=== PATIENT | female | born 1990 | race American Indian/Alaskan Native ===

== ENCOUNTER 2017-01-24 18:46 | Emergency (ER) | payer OTHER ==
--- NOTE | 2017-01-24 22:13 | Emergency Department Report ---
ED Psych HPI - General Chief Complaint: Psych Stated Complaint: PSYCHE Time Seen by Provider: 01/24/17 21:30 Source: patient, family Mode of arrival: Ambulatory Limitations: Other - History of Present Illness Initial Comments: Is a 26-year-old female that presents emergency room with bizarre behavior and psychotic features. Patient's family states that she has not eaten for days and was arrested for trespassing into a judaism and this type of behavior is very unusual for her. Per family she is in her second year [employer] school and is almost ready to graduate. Family states she's been under a lot of stress due to a in the family. Unable to get accurate history from patient due to the flights of ideas. He denies suicidal ideations and homicidal ideations. MD Complaint: other -: Sudden Associated Psychiatric Symptoms: racing thoughts Quality: getting worse Improves With: none Worsens With: none Context: not taking psychiatric Treatments Prior to Arrival: none - Related Data Home Medications Medication Instructions Recorded Confirmed Last Taken No Known Home Medications [No 01/24/17 01/24/17 Unknown Reported Home Medications] Allergies Allergy/AdvReac Type Severity Reaction Status Date / Time amoxicillin [From Augmentin] Allergy Rash Verified 01/24/17 18:53 clavulanic acid Allergy Rash Verified 01/24/17 18:53 [From Augmentin] ED Review of Systems ROS: Stated complaint: PSYCHE Other details as noted in HPI Comment: All other systems reviewed and negative Constitutional: denies: chills, fever Eyes: denies: eye pain, eye discharge, vision change ENT: denies: ear pain, throat pain Respiratory: denies: cough, shortness of breath, wheezing Cardiovascular: denies: chest pain, palpitations Endocrine: no symptoms reported Gastrointestinal: denies: abdominal pain, nausea, diarrhea Genitourinary: denies: urgency, dysuria, discharge Musculoskeletal: denies: back pain, joint swelling, arthralgia Skin: denies: rash, lesions Neurological: denies: headache, weakness, paresthesias Psychiatric: denies: anxiety, depression Hematological/Lymphatic: denies: easy bleeding, easy bruising ED Past Medical Hx - Past Medical History Previous Medical History?: No - Family History Family history: no significant - Social History Smoking Status: Never Smoker Substance Use Type: None - Medications Home Medications: Home Medications Medication Instructions Recorded Confirmed Last Taken Type No Known Home Medications [No 01/24/17 01/24/17 Unknown History Reported Home Medications] ED Physical Exam - General Limitations: No Limitations General appearance: alert, in no apparent distress - Head Head exam: Present: atraumatic, normocephalic - Eye Eye exam: Present: normal appearance Pupils: Present: normal accommodation - ENT ENT exam: Present: mucous membranes moist - Neck Neck exam: Present: normal inspection - Respiratory Respiratory exam: Present: normal lung sounds bilaterally. Absent: respiratory distress - Cardiovascular Cardiovascular Exam: Present: regular rate, normal rhythm. Absent: systolic murmur, diastolic murmur, rubs, gallop - GI/Abdominal GI/Abdominal exam: Present: soft, normal bowel sounds - Extremities Exam Extremities exam: Present: normal inspection - Back Exam Back exam: Present: normal inspection - Neurological Exam Neurological exam: Present: alert, oriented X3 - Psychiatric Psychiatric exam: Present: agitated, anxious, manic (pt having racing thoughts. Patient having tangential ideas. Patient agitated during exam. pt. Delusional. pt hyper talkative) - Skin Skin exam: Present: warm, dry, intact, normal color. Absent: rash ED Course Vital Signs 01/24/17 18:53 Temperature 98.1 F Pulse Rate 101 H Respiratory 18 Rate Blood Pressure 117/81 O2 Sat by Pulse 100 Oximetry ED Medical Decision Making - Lab Data Result diagrams: 01/24/17 22:51 - Medical Decision Making Due to patient's mental status will 1013 patient. Patient appears unable to care for herself due to her psychosis. All labs reviewed. She is medically clear for psychiatric evaluation and transferred to psychiatric hospital. - Differential Diagnosis dep, bipolar,schizo, psychosis Critical care attestation.: If time is entered above; I have spent that time in minutes in the direct care of this critically ill patient, excluding procedure time. ED Disposition Clinical Impression: Psychosis, Delusions, Agitation Disposition: [id number]/TX-65 PSY HOSP/PSY UNIT Is pt being admited?: No Does the pt Need Aspirin: No Condition: Stable Time of Disposition: 02:07
[2017-01-24 23:14] LABS: Urine Drugs of Abuse Note Disclamer
[2017-01-24 23:27] LABS: Basophils % (Auto) 0.3 % (0.0-1.8); Eosinophils % (Auto) 0.5 % (0.0-4.3); Hematocrit 41.4 % (30.3-42.9); Hemoglobin 13.4 gm/dl (10.1-14.3); Mean Corpuscular HGB Conc 32 % (30-34); Mean Corpuscular Hemoglobin 28 pg (28-32); Mean Corpuscular Volume 87 fl (79-97); Platelet Count 335 K/mm3 (140-440); Red Blood Count 4.78 M/mm3 (3.65-5.03); Red Cell Distribution Width 13.8 % (13.2-15.2)
[2017-01-24 23:29] LABS: Bilirubin,Urine NEG (Negative); Blood,Urine SM (Negative); Ketones,Urine 80 mg/dL (Negative); Leukocyte Esterase,Urine NEG (Negative); Mucus,Urine 2+ /HPF; Nitrite,Urine NEG (Negative)
[2017-01-25 06:49] LABS: Anion Gap 24 mmol/L; BUN/Creatinine Ratio 13; Blood Urea Nitrogen 9 mg/dL (7-17); Calcium 9.7 mg/dL (8.4-10.2); Carbon Dioxide 21 mmol/L (22-30); Chloride 99.8 mmol/L (98-107); Glucose 97 mg/dL (65-100); Potassium 3.7 mmol/L (3.6-5.0); Sodium 141 mmol/L (137-145)
[2017-01-25 09:43] VITALS: BP 159/89
--- NOTE | 2017-01-25 11:48 | Consultation ---
History of Present Illness - Reason for Consult Consult date: 01/25/17 Reason for consult: Mental Health Evaluation Requesting physician: JAIDA CAMPA III - Chief Complaint Chief complaint: "I want to go home with my parents" - History of Present Psychiatric Illness 26-year-old female that presents emergency room with bizarre behavior and psychotic features. Today patient is calm and cooperative, but hyper verbal during the assessment. 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 The patient could not elaborate more about this incident. Per the ER note, the patient was arrested for trespassing. She stated that she had been up for days without sleep prior to the episode at her [employer] because she was "In the [employer]." She stated that someone in the hospital performed some type of "sleep study" on her overnight. Per the staff and notes, a sleep study was not performed on this patient (delusional). Patient had to be redirected several times during the interview to keep her on topic. She denies SI/HI's and AVH's. She denies a poor appetite. She denies recreational drug use and alcohol consumption (etoh). Medications and Allergies Allergies Allergy/AdvReac Type Severity Reaction Status Date / Time amoxicillin [From Augmentin] Allergy Rash Verified 01/24/17 18:53 clavulanic acid Allergy Rash Verified 01/24/17 18:53 [From Augmentin] Home Medications Medication Instructions Recorded Confirmed Last Taken Type No Known Home Medications [No 01/24/17 01/24/17 Unknown History Reported Home Medications] Mental Status Exam - Vital signs Last Vital Signs Temp 98.7 F 01/25/17 08:30 Pulse 109 H 01/25/17 08:30 Resp 18 01/25/17 08:30 BP 159/89 01/25/17 08:30 Pulse Ox 98 01/25/17 08:30 - Exam Narrative exam: MSE: Appearance: calm, cooperative Behavior: regular eye contact Speech: regular rate and tone, hyper verbal Mood: "okay" Affect: congruent to mood Thought Process: circumstantial Thought Content: denies SI/HI's and AVH's, delusional Motor Activity: ambulatory Cognition: A/Ox3 Insight: poor Judgment: variable Results Result Diagrams: 01/24/17 22:51 01/24/17 22:51 Abnormal lab results 01/24/17 01/24/17 Range/Units 22:51 22:51 WBC 14.0 H (4.5-11.0) K/mm3 Glynn % (Auto) 8.0 H (0.0-7.3) % Glynn # 1.1 H (0.0-0.8) K/mm3 Seg Neutrophils # 8.6 H (1.8-7.7) K/mm3 Carbon Dioxide 21 L (22-30) mmol/L All other labs normal. Assessment and Plan Assessment and plan: Impression: Unspecified Mood DO with psy features. Today patient is calm and cooperative, but hyper verbal during the assessment. DDx: Bipolar DO Recommendation/Plan: Continue 1013 with placement to [facility] today.
== END 2017-01-25 09:40 ==
LOC: ED 18:46 → EEVIPCON 18:46 → ED 01-25 09:40
DX: R45.1 Restlessness and agitation (principal); F29 Unspecified psychosis not due to a substance or known physiological condition; F22 Delusional disorders
CPT/HCPCS: 36415; 80048; 80307; 81001; 84703; 85025; 99285; G0480; 80320

== ENCOUNTER 2021-01-03 11:09 | Emergency (ER) | payer OTHER, BC ==
[2021-01-03 11:26] VITALS: BP 108/69
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
== END 2021-01-03 12:19 | disposition home or self-care (01) ==
LOC: ED 11:09
DX: S29.012A Strain of muscle and tendon of back wall of thorax, initial encounter (principal); V89.2XXA Person injured in unspecified motor-vehicle accident, traffic, initial encounter; Y93.89 Activity, other specified; Y92.89 Other specified places as the place of occurrence of the external cause; Y99.8 Other external cause status
CPT/HCPCS: 99281